=== PATIENT | male | born 1945 | race Hispanic/Latino ===

== ENCOUNTER 2017-08-08 08:09 | Outpatient (CLI) | payer MEDICARE, OTHER ==
[2017-08-08 08:47] LABS: Blood Urea Nitrogen 12 mg/dL (9-20)
--- NOTE | 2017-08-11 07:51 | Cat Scan Report ---
FINAL REPORT EXAM: CT ANGIO ABD/FEMORAL ABD AORTA HISTORY: ANEURYSM OF ARTERY OF LOWER EXT,ATHEROSCLEROSIS OF ARTIERIES TECHNIQUE: CT images are acquired through the abdominal aorta and lower extremities in angiographic phase following intravenous administration of contrast. Transaxial, coronal and sagittal reformations with maximal intensity projections are provided. PRIORS: None FINDINGS: Partially visualized intrathoracic contents are unremarkable. Subcentimeter layering gallstones are present near the neck of the gallbladder. No pericholecystic inflammatory findings are identified. Imaged portions of the liver, pancreas, spleen, and adrenal glands are unremarkable. Anterior and lateral portions of the abdomen extend off of the field of view. Right renal sinus cyst measures up to 4 cm with a peripheral calcification. Exophytic left renal cyst measures up to 3.5 cm. Otherwise symmetric cortical medullary phase enhancement pattern is seen in the kidneys. Ureters are normal in course and caliber. No stones in the urinary bladder. Kidneys are normal in size, axis and position. The visualized small and large bowel are normal in caliber. Appendix is normal. No free air, free fluid, or lymphadenopathy identified. There is densely scattered atherosclerosis throughout the abdominal aorta involving the origins of the renal arteries, superior mesenteric and celiac arteries. Bilateral common iliac vein stents are present. The phase of contrast enhancement is predominantly arterial, and the patency of the stents cannot be determined on this examination. There is extensive scattered atherosclerosis in the common, internal and external iliac arteries at least 50 percent stenosis is present within the external iliac artery bilaterally. Profundus femoral artery is opacified in the right and left thigh with densely scattered atherosclerosis and at least 50 percent stenosis. Extensive atherosclerosis throughout the popliteal arteries with up to about 50 percent stenosis along multiple segments. There is 3 vessel arterial opacification in both legs extending to the level of the tibial plafond. Diffuse lower extremity edema. Dystrophic/heterotopic calcification is present within the anterior/extensor compartment of the left leg. Asymmetric moderate arthropathy in the left knee and ankle. The visualized superficial soft tissues are otherwise unremarkable. No acute or aggressive appearing skeletal findings. IMPRESSION: No abdominal aorta or lower extremity aneurysm. There is extensive atherosclerosis resulting in greater than 50 percent stenosis in the common iliac arteries extending distally throughout all major arteries of the lower extremities. Bilateral common iliac vein stents are present, the patency of which cannot be determined on this examination. Suggested 4 centimeter right renal sinus cyst with peripheral calcification. Correlation with prior imaging for stability is requested. Asymmetric arthropathy within the left knee and ankle, and heterotopic calcification in the extensor compartment of the left leg may be due to prior trauma. Correlation with patient history is requested.
== END 2017-08-08 08:10 | disposition home or self-care (01) ==
LOC: CT 08:09
PROVIDERS: ATTEND Radiology Diagnostic Radiology
DX: I70.213 Atherosclerosis of native arteries of extremities with intermittent claudication, bilateral legs (principal); I72.4 Aneurysm of artery of lower extremity; I87.332 Chronic venous hypertension (idiopathic) with ulcer and inflammation of left lower extremity; I89.0 Lymphedema, not elsewhere classified; I87.2 Venous insufficiency (chronic) (peripheral); K80.20 Calculus of gallbladder without cholecystitis without obstruction; J34.1 Cyst and mucocele of nose and nasal sinus; N28.1 Cyst of kidney, acquired; I70.0 Atherosclerosis of aorta; I77.1 Stricture of artery; M12.862 Other specific arthropathies, not elsewhere classified, left knee; M12.872 Other specific arthropathies, not elsewhere classified, left ankle and foot
CPT/HCPCS: 36415; 75635; 82565; 84520; Q9967

== ENCOUNTER 2017-08-28 07:50 | Day surgery (SDC) | payer MEDICARE, OTHER ==
[~2017-08-28 07:50] MED LIST: ANCEF/STERILE WATER 2 GM/20 ML 2 GM/20 ML SYRINGE IV NR; NACL 0.9% 1000 ML 1,000 ML IV SCH
[2017-08-28 08:45] LABS: Basophils # (Auto) 0.1 K/mm3 (0.0-0.1); Eosinophils # (Auto) 0.4 K/mm3 (0.0-0.4); Eosinophils % (Auto) 4.3 % (0.0-4.3); Hematocrit 45.4 % (35.5-45.6); Hemoglobin 15.3 gm/dl (11.8-15.2); Lymphocytes # (Auto) 2.5 K/mm3 (1.2-5.4); Lymphocytes % (Auto) 27.2 % (13.4-35.0); Mean Corpuscular HGB Conc 34 % (32-34); Mean Corpuscular Hemoglobin 32 pg (28-32); Mean Corpuscular Volume 94 fl (84-94); Monocytes # (Auto) 0.9 K/mm3 (0.0-0.8); Monocytes % (Auto) 9.5 % (0.0-7.3); Platelet Count 228 K/mm3 (140-440); Red Blood Count 4.82 M/mm3 (3.65-5.03); Red Cell Distribution Width 14.1 % (13.2-15.2)
[2017-08-28 08:58] LABS: BUN/Creatinine Ratio 20; Blood Urea Nitrogen 18 mg/dL (9-20); Calcium 9.2 mg/dL (8.4-10.2); Hemolysis Index 6
[2017-08-28] MEDS ORDERED: NACL 0.9% 500 ML 500 ML IV SCH (09:00)
[2017-08-28 09:15] LABS: INR 0.96 (0.87-1.13)
[2017-08-28] MEDS ORDERED: HEPARIN 10,000 UNITS/10 ML ONE (10:32)
[2017-08-28] MEDS ORDERED: HEPARIN/NS 5000 UNIT/500ML(CATH LAB) 1,000 ML IR ONE (10:32)
[2017-08-28] MEDS ORDERED: XYLOCAINE 2% INFILTRATI ONE (10:33)
[2017-08-28] MEDS ORDERED: ANCEF/STERILE WATER 2 GM/20 ML 2 GM/20 ML SYRINGE IV ONE (10:33)
[2017-08-28] MEDS: VERSED ONE ×4 (10:46→11:21)
[2017-08-28] MEDS: SUBLIMAZE ONE ×5 (10:47→11:49)
--- NOTE | 2017-08-28 11:30 | Short Stay Summary ---
Short Stay Documentation Date of service: 08/28/17 - History Principal diagnosis: PVD with rest pain bilateral H&P: obtained from office - Allergies and Medications Current Medications: Allergies diltiazem [From Cardizem] Allergy (Severe, Verified 08/28/17 08:45) Hives oxycodone [From Percodan] Allergy (Severe, Verified 08/28/17 08:47) Unknown Hallicunations warfarin [From Coumadin] Adverse Reaction (Intermediate, Verified 08/28/17 08:45 ) Headache Home Medications Medication Instructions Recorded Confirmed Last Taken Type Clopidogrel Bisulfate [Clopidogrel] 75 mg PO DAILY 08/28/17 08/28/17 08/27/17 History 75mg Furosemide [Lasix TAB] 20 mg PO DAILY 08/28/17 08/28/17 08/27/17 History 20mg Gabapentin [Neurontin] 300 mg PO HS 08/28/17 08/28/17 08/26/17 History 300mg Hydrophilic Ointment [Dermafix] 1 applic TRANSDERMA DAILY 08/28/17 08/28/1705/06 History 1 application Insulin NPH/Regular [NovoLIN 70/30] 50 units SQ BID 08/28/17 08/28/17 08/27/17 History 25units Ipratropium/Albuterol Sulfate 1 puff INHALATION PRN PRN 08/28/17 08/28/17 History [Combivent Respimat] 1 puff Lisinopril 20 mg PO DAILY 08/28/17 08/28/17 08/27/17 History 20mg Metformin HCl [Metformin HCl ER] 1,000 mg PO BID 08/28/17 08/28/17 08/26/17 History 1000mg Rosuvastatin (Nf) [Crestor] 20 mg PO QHS 08/28/17 08/28/17 08/27/17 History 20mg Active Medications Cefazolin Sodium (Ancef/Sterile Water 2 Gm/20 Ml) 2 gm in 20 mls @ 80 mls/hr IV PREOP NR; Protocol Stop: 08/28/17 23:00 Sodium Chloride (Nacl 0.9% 500 Ml) 500 mls @ 50 mls/hr IV DIRECT LUCÍA Last Admin: 08/28/17 09:00 Dose: 50 mls/hr - Brief post op/procedure progress note Date of procedure: 08/28/17 Pre-op diagnosis: PVD with rest pain bilateral Post-op diagnosis: same Procedure: ilateral RAIMUNDO stent Anesthesia: local Surgeon: DIANA FRASER Estimated blood loss: minimal Pathology: none Condition: stable - Disposition Condition at discharge: Good Disposition: [id number] TO HOME OR SELFCARE Short Stay Discharge Plan Activity: advance as tolerated Weight Bearing Status: Weight Bear as Tolerated Diet: regular Wound: keep clean and dry, per your surgeon's advice Follow up with: FLAVIA PERALES MD [Primary Care Provider] - 7 Days
--- NOTE | 2017-08-28 11:37 | Operative Report ---
Operative Report Operative Report: EXAM: BILATERAL COMMON ILIAC ARTERY STENT CLINICAL INDICATION: BILATERAL LOWER EXTREMITY PVD WITH CLAUDICATION DATE: 08/28/2017 PROCEDURE: Following an explanation of the risks, benefits and alternatives; written informed consent was obtained. The patient was brought to the angiographic suite and placed in supine position on the examination table. Initial ultrasound evaluation of his groins demonstrated patent common femoral arteries bilaterally. Bilateral groins were prepped and draped in the usual sterile fashion. 1% lidocaine was used for anesthesia. Under ultrasound guidance, the right common femoral artery was cannulated with a 7 cm 21-gauge needle. A 0.018 guidewire was advanced centrally. The needle was exchanged for a micro-sheath in the 0.018 guidewire exchanged for a 0.035 guidewire and the micro-sheath was then exchanged for a 7 Azeri vascular sheath. Access on the left was obtained in a similar fashion and an additional 7 Azeri sheath placed. A 5 Azeri marking pigtail catheter was advanced over the guidewire through the right sheath. Catheter was advanced to the distal abdominal aorta. Angiography was performed which demonstrates no occlusive disease involving the left common iliac artery and 70-80% stenosis involving the proximal right common iliac artery. Scattered diffuse disease is present within the left external iliac arteries and internal iliac arteries bilaterally. The guidewire was placed through the pigtail catheter and catheter removed. An 8 mm x 59 mm Tamiment VBX stent was then advanced through the right sheath over the guidewire to the distal abdominal aorta. A second 8 mm x 59 mm Tamiment VBX stent was then advanced through the left sheath. The stents were then placed in kissing fashion within the distal abdominal aorta and deployed. The stents were seated proximally using a 10 mm balloon to flare the stents within the distal abdominal aorta. The stents were then seated with 10 mm balloons in the common iliac arteries distally to seek the stents distally. Images were obtained and multiple below obliquities which demonstrated no significant endoleak's bilaterally. At this point, the guidewires and she's were removed and hemostasis achieved using manual compression. A sterile dressing was then applied. The patient tolerated the procedure well. There were no immediate post procedure competitions. Conscious sedation was performed under the guidance of radiologic nursing. Continuous cardiopulmonary monitoring was utilized. IMPRESSION: 1) Aortogram and pelvic angiogram demonstrating near occlusive disease involving the left common iliac artery and 70-80% stenosis involving the proximal right common iliac artery. 2) Placement of kissing stents within bilateral common iliac arteries as described. Residual less than 10% stenosis.
[2017-08-28] MEDS ORDERED: MARCAINE 0.25% INFILTRATI ONE (12:54)
[2017-08-28] MEDS ORDERED: DECADRON ONE (12:54)
[2017-08-28 15:02] VITALS: BP 151/76
--- NOTE | 2017-08-30 10:58 | Vascular Lab Report ---
MISCELLANEOUS VESSEL IDENTIFICATION: COMMENTS ON THE SCAN: Right common femoral arteries were identified real-time ultrasound guidance IMPRESSION: Successful ultrasound guided bilateral arterial cannulation.
== END 2017-08-28 15:55 | disposition home or self-care (01) ==
LOC: CATHLABREC 07:50
PROVIDERS: ATTEND Radiology Diagnostic Radiology
DX: I70.213 Atherosclerosis of native arteries of extremities with intermittent claudication, bilateral legs (principal); I70.223 Atherosclerosis of native arteries of extremities with rest pain, bilateral legs; Z88.8 Allergy status to other drugs, medicaments and biological substances; E11.51 Type 2 diabetes mellitus with diabetic peripheral angiopathy without gangrene; I10 Essential (primary) hypertension; J43.9 Emphysema, unspecified; E78.00 Pure hypercholesterolemia, unspecified; Z79.4 Long term (current) use of insulin; Z79.01 Long term (current) use of anticoagulants; Z98.890 Other specified postprocedural states
CPT/HCPCS: 36415; 37221; 76937; 80048; 85025; 85347; 85610; 85730; 99156; 99157; C1725; C1769; C1894; J0690; J1100; J1644; J2250; J3010; J7040; Q9967